=== PATIENT | male | born 1995 | race Two or more races ===

== ENCOUNTER 2016-09-15 20:46 | Emergency (ER) | payer OTHER ==
[2016-09-15] MEDS ORDERED: FAMOTIDINE INJ/PF 20 MG/2 ML SDV IV ONE (20:58)
[2016-09-15] MEDS ORDERED: NORMAL SALINE 1000 ML 1,000 ML IV PRN (20:58)
[2016-09-15] MEDS ORDERED: DIPHENHYDRAMINE HCL 50 MG/ML VIAL IV ONE (20:58)
[2016-09-15] MEDS ORDERED: METHYLPREDNISOLONE INJ 125 MG/2 ML SDV IV ONE (20:58)
--- NOTE | 2016-09-15 21:00 | ER Document Report ---
ED Medical Screen (RME) - General Chief Complaint: Allergic Reaction Stated Complaint: POSSIBLE ALLERGIC REACTION Time Seen by Provider: 09/15/16 20:57 Mode of Arrival: Ambulatory Information source: Patient TRAVEL OUTSIDE OF THE [place] IN LAST 30 DAYS: No - HPI Patient complains to provider of: fire ant bites Notes: 09/15/16 20:59 Presents to emergency room complaining of allergic reaction to fire ant bites, has several bites on his left upper extremity, but has developed diffuse urticaria with facial swelling, denies any difficulty swallowing or breathing, no history of similar symptoms. 09/15/16 21:00 no airway compromise, lungs clear to auscultation Past Medical History Renal/ Medical History: Denies: Hx Peritoneal Dialysis Physical Exam - Vital signs Vitals: Temp Pulse Resp BP Pulse Ox 98.5 F 70 17 155/72 H 97 09/15/16 20:54 09/15/16 20:54 09/15/16 20:54 09/15/16 20:54 09/15/16 20:54 Course - Vital Signs Vital signs: Temp Pulse Resp BP Pulse Ox 98.5 F 70 17 155/72 H 97 09/15/16 20:54 09/15/16 20:54 09/15/16 20:54 09/15/16 20:54 09/15/16 20:54
--- NOTE | 2016-09-15 22:34 | ER Document Report ---
ED Allergic Reaction - General Mode of Arrival: Ambulatory Information source: Patient TRAVEL OUTSIDE OF THE [place] IN LAST 30 DAYS: No - HPI Onset: Just prior to arrival - Refer to HPI notes Identified cause: Yes - fire ants Swelling: Face, Hands Similar symptoms previously: No Recently seen / treated by doctor: No - General Chief Complaint: Allergic Reaction Stated Complaint: POSSIBLE ALLERGIC REACTION Time Seen by Provider: 09/15/16 20:57 Notes: Patient is a 21-year-old male presenting to the emergency department for allergic reaction to fire ants. Patient got bit at approximately 19:45 this evening. Patient states that he has not been bit by fire ants in the past; patient also denies any history of a similar reaction to bees or wasps in the past. Patient has several bites to his left upper extremity along with facial swelling and diffuse urticaria. Patient states he felt some slight chest pain and some tightness in his throat as well as a strange sensation to his ears. Patient states these symptoms occurred approximately 25 minutes after being bitten. Patient took 25 mg Benadryl at 20:15. Patient was evaluated in triage and given Solu-Medrol, Pepcid and Benadryl. 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 Patient has no known drug allergies. (SHERLY KOLB) - Related Data Allergies/Adverse Reactions: No Known Allergies Allergy (Unverified 09/15/16 21:01) Past Medical History - General Information source: Patient - Social History Smoking Status: Never Smoker Cigarette use (# per day): No Chew tobacco use (# tins/day): No Frequency of alcohol use: Occasional Drug Abuse: None Family History: None Patient has suicidal ideation: No Patient has homicidal ideation: No Surgical Hx: Negative Review of Systems - Review of Systems Constitutional: No symptoms reported EENT: No symptoms reported Cardiovascular: No symptoms reported Respiratory: No symptoms reported Gastrointestinal: No symptoms reported Genitourinary: No symptoms reported Male Genitourinary: No symptoms reported Musculoskeletal: See HPI Skin: See HPI Hematologic/Lymphatic: No symptoms reported Neurological/Psychological: No symptoms reported -: Yes All other systems reviewed and negative Physical Exam - Vital signs Vitals: Temp Pulse Resp BP Pulse Ox 98.5 F 70 17 155/72 H 97 09/15/16 20:54 09/15/16 20:54 09/15/16 20:54 09/15/16 20:54 09/15/16 20:54 - Notes Notes: GENERAL: Alert, interacts well. No evidence of anaphylaxis at this time. No acute distress. HEAD: Normocephalic, atraumatic. EYES: Pupils equal, round, and reactive to light. Extraocular movements intact. ENT: Oral mucosa moist, tongue midline. No evidence of airway compromise. NECK: Full range of motion. Supple. Trachea midline. LUNGS: Clear to auscultation bilaterally, no wheezes, rales, or rhonchi. No respiratory distress. HEART: Regular rate and rhythm. No murmurs, gallops, or rubs. ABDOMEN: Soft, non-tender. Non-distended. Bowel sounds present in all 4 quadrants. BACK: Normal inspection, no sign of hives, swelling or erythema. EXTREMITIES: Moves all 4 extremities spontaneously. Swelling and erythema to the left upper wrist consistent with ant bites. No cyanosis. NEUROLOGICAL: Alert and oriented x3. Normal speech. PSYCH: Normal affect, normal mood. SKIN: Warm, dry, normal turgor. No hives or urticaria seen anywhere else on the patient. (SHERLY KOLB) Course - Re-evaluation Re-evalutation: 09/15/16 22:35 His hives have completely resolved, there is still some swelling noted on the left wrist. No respiratory compromise, patient responded well to the Pepcid, Benadryl and Solu-Medrol. Given the fact that he had some tightness of his throat when this originally happened patient will be given EpiPen prescription. Patient is also given prescription for prednisone, Benadryl and Pepcid. Patient is instructed to inform his GMO as well as his load builder about his allergic reaction to the fire ants. Patient is aware that this could compromise his ability to safely go into the field for training with the . (NACHO LANDA) - Vital Signs Vital signs: Temp Pulse Resp BP Pulse Ox 98.0 F 76 18 128/72 H 99 09/15/16 22:56 09/15/16 22:56 09/15/16 22:56 09/15/16 22:56 09/15/16 22:56 Discharge - Discharge Clinical Impression: Systemic reaction to insect sting, Situational hypertension Fire ant bite Qualifiers: Encounter type: initial encounter Injury intent: accidental or unintentional Qualified Code(s): T63.421A - Toxic effect of venom of ants, accidental ( unintentional), initial encounter Condition: Stable Disposition: HOME, SELF-CARE Additional Instructions: Acute Allergic Reaction Your symptoms are due to an allergic reaction. Allergy can cause hives, swelling of the hands, feet, and face, hoarseness, and difficulty swallowing or breathing. It may be due to exposure to medication, animal dander, foods, infection, or insect bites. Medication is a common cause, even when prior use of this same medication caused no problems. Acute treatment may include adrenalin and antihistamines. Usually, the specific allergic agent can't be identified unless repeated episodes occur. Home treatment includes the following: (1) Stop any suspicious medications. This will be discussed with you. (2) Oral antihistamines for the next four to five days. Example, diphenhydramine (Benadryl) every four hours. (3) You may also use cimetidine (Tagamet), ranitidine (Zantac), or famotidine (Pepcid) every four hours if diphenhydramine is not controlling itching and hives. (4) Avoid aspirin until the hives completely disappear. (5) Avoid hot bahs or showers until the hives are completely gone. Call the doctor if faintness, difficulty swallowing, tightness in the chest, or wheezing occurs. You must tell your general medical reception specialist and requirement about your allergic reaction to the fire ant bite. This could seriously compromise your ability to go into the field. You must have your EpiPen with you if you go into the field. If you start to feel like your throat is closing up again please return to the emergency department immediately. Use your EpiPen. Prescriptions: Epinephrine [Epipen 2-Lewis] 0.3 mg IM PRN PRN #1 ml PRN Reason: Prednisone 20 mg PO DAILY #3 tablet Scribe Attestation: 09/16/16 00:31 I personally performed the services described in the documentation, reviewed and edited the documentation which was dictated to the scribe in my presence, and it accurately records my words and actions. (NACHO LANDA) Scribe Documentation - Scribe Written by Josh:: Josh Mancia, 09/15/2016 23:08 acting as scribe for :: Ed
[2016-09-15 23:00] VITALS: BP 128/72
== END 2016-09-15 22:57 | disposition home or self-care (01) ==
LOC: ER 20:46
DX: T63.421A Toxic effect of venom of ants, accidental (unintentional), initial encounter (principal); L50.9 Urticaria, unspecified; R20.0 Anesthesia of skin; R09.89 Other specified symptoms and signs involving the circulatory and respiratory systems; R07.9 Chest pain, unspecified; R03.0 Elevated blood-pressure reading, without diagnosis of hypertension
CPT/HCPCS: 99283; 96361; 96374; 96375; J1200; J2930; J7030; S0028